=== PATIENT | female | born 2000 | race Caucasian/White ===

== ENCOUNTER 2022-11-18 12:26 | Inpatient (IN) ==
--- NOTE | 2022-11-18 13:41 | Emergency Department Note ---
Impression & Plan Suicidal thoughts ADMIT ED Provider Note HPI: The patient is a 22-year-old female who is currently a sophomore at [employer], history of anxiety and depression, ADHD, presents emergency department with a chief complaint of suicidal thoughts. Patient was seen today in the outpatient setting at the [facility] for psychological counseling, she was mentioning thoughts of self-harm including wanting to hang herself, she was brought into the emergency department after police were contacted from the clinic. On arrival here to the ED the patient is calm and cooperative, she states that she would like inpatient psychiatric care she is feeling "hopeless" and she is having thoughts of wanting to kill herself. Patient is alert and oriented on arrival and otherwise is in no acute physical distress on my initial evaluation. ROS: - Per HPI *Outpatient medications and allergy history reviewed. *Pertinent external medical records reviewed. PE: General: Alert HEENT: Normocephalic, trachea midline Eyes: Extraocular eye movement is intact, no scleral erythema Pulmonary: Clear to auscultation bilaterally, no wheezing Cardio: Regular rate and rhythm GI: Abdomen is soft to palpation : No suprapubic tenderness MSK: No evidence of trauma or malformation of the extremities, no edema Skin: No evidence of rash Neuro: Alert, no focal deficits Psychiatric: Cooperative Differential Diagnosis: Anxiety/depression, suicidal thoughts, amongst other potential pathologies. Medical Decision Making: Patient presented to the emergency department for psychiatric evaluation, presents voluntarily as she has been having increasing anxiety and depression recently. Patient states she feels "hopeless". On arrival here to the ED the patient is conversational, she is otherwise in no acute physical distress on my initial assessment. Medical clearance lab work was obtained and does not show any critical abnormalities, drug screen is positive for marijuana, patient states that she has a medical card for this. Patient is otherwise stable here in the ED. She was assessed for placement here at [facility] and was excepted. Patient was transferred to [facility] in stable condition for inpatient psychiatric care. Consultants: Case management Disposition discussion held by myself with: Patient Diagnosis: 1. Suicidal thoughts, acute 2. Anxiety and depression Disposition: Admission to psychiatry under 201 Karel Alonso DO Emergency Medicine Past Med/Surg History Social History Smoking Status: Never smoker Gender Identity: Female Home Meds Home Medications Medication Instructions Recorded Confirmed dextroamphetamine-amphetamine 20 20 mg PO DAILY 11/18/22 11/18/22 mg tablet sertraline 50 mg tablet 75 mg PO DAILY 11/18/22 11/18/22 Results & Data (ED) Vital Signs Vital Signs - 24 hr 11/18/22 12:27 Temperature 36.9 C Temperature Source Oral Pulse Rate 100 H Respiratory Rate 14 Respiratory Depth Normal Blood Pressure 130/72 Blood Pressure Mean 91 Pulse Oximetry 99 Oxygen Delivery Method Room Air Sepsis Recent Fever Within 48 Hours No Sepsis New/Unexplained Change in Mental Status No Sepsis Action Taken by Nursing No Action Required Laboratory Data 11/18/22 13:20 11/18/22 13:20 Lab Results 11/18/22 11/18/22 11/18/22 Range/Units 12:32 12:32 12:32 WBC (4.8-10.8) K/ul RBC (4.20-5.40) M/uL Hgb (12.0-16.0) g/dl Hct (37.0-47.0) % MCV (80.0-100.0) fL MCH (25.0-34.0) pg MCHC (32.0-36.0) g/dL RDW Std Deviation (36.4-46.3) fL RDW Coeff of Al (11.5-14.5) % Plt Count (130-400) K/uL MPV (9.4-12.4) fL Immature Gran % (Auto) % Neut % (Auto) % Lymph % (Auto) % Thomas % (Auto) % Eos % (Auto) % Baso % (Auto) % Neut # (Auto) (1.40-6.50) K/uL Lymph # (Auto) (1.2-3.4) K/uL Thomas # (Auto) (0.11-0.59) K/uL Eos # (Auto) (0-0.50) K/uL Baso # (Auto) (0-0.2) K/uL Immature Gran # (Auto) (0.01-0.20) K/uL Sodium (136-145) mmol/L Potassium (3.5-5.1) mmol/L Chloride (98-107) mmol/L Carbon Dioxide (21-32) mmol/L Anion Gap (3-11) BUN (6-23) mg/dl Creatinine (0.6-1.2) mg/dl Est Cr Clr Drug Dosing ml/min Est GFR ( Amer) ml/min Est GFR (Non-Af Amer) ml/min BUN/Creatinine Ratio (10-20) Glucose (70-99(Fasting)) mg/dl Calcium (8.5-10.1) mg/dl Total Bilirubin (0.2-1.0) mg/dl AST (13-39) U/L ALT (7-52) U/L Alkaline Phosphatase (34-104) U/L Total Protein (6.0-8.3) gm/dl Albumin (3.4-5.0) gm/dl Globulin (2.5-4.0) gm/dl Albumin/Globulin Ratio (0.9-2) TSH (0.300-4.500) uIu/ml Urine Color Dark Yellow Urine Appearance Cloudy A (Clear) Urine pH 5.5 (4.5-7.5) Ur Specific Shelby 1.037 H (1.000-1.030) Urine Protein Trace H (Negative) Urine Glucose (UA) Negative (Negative) Urine Ketones 1+ H (Negative) Urine Blood 2+ H (Negative) Urine Nitrite Negative (Negative) Urine Bilirubin 1+ H (Negative) Urine Urobilinogen Negative (Negative) Ur Leukocyte Esterase Negative (Negative) Urine WBC (Auto) 1-5 (0-5) /hpf Urine RBC (Auto) 0-4 (0-4) /hpf U Hyaline Cast (Auto) 10-30 H (0-5) /lpf U Epithel Cells (Auto) >30 H (0-5) /lpf Urine Bacteria (Auto) Negative (Negative) Urine Test Negative (Negative) Salicylates (3.0-30) mg/dl Urine Opiates Screen Neg (Neg) Ur Methadone, Qual Neg (Neg) Acetaminophen (10-30) ug/ml Urine Barbiturates Neg (Neg) Ur Phencyclidine (PCP) Neg (Neg) U Amphetamin/Meth Scrn Pos H (Neg) MDMA (Ecstasy) Screen Pos H (Neg) U Benzodiazepines Scrn Neg (Neg) Ur Cocaine Metabolite Neg (Neg) U Marijuana (THC) Screen Pos H (Neg) Ethyl Alcohol mg/dL (<10.0) mg/dl SARS-CoV-2, RNA, NAAT (NEGATIVE) 11/18/22 11/18/22 11/18/22 Range/Units 13:20 13:20 13:20 WBC 4.76 L (4.8-10.8) K/ul RBC 4.67 (4.20-5.40) M/uL Hgb 14.4 (12.0-16.0) g/dl Hct 42.2 (37.0-47.0) % MCV 90.4 (80.0-100.0) fL MCH 30.8 (25.0-34.0) pg MCHC 34.1 (32.0-36.0) g/dL RDW Std Deviation 41.3 (36.4-46.3) fL RDW Coeff of Al 12.4 (11.5-14.5) % Plt Count 279 (130-400) K/uL MPV 10.0 (9.4-12.4) fL Immature Gran % (Auto) 0.2 % Neut % (Auto) 58.3 % Lymph % (Auto) 34.2 % Thomas % (Auto) 6.1 % Eos % (Auto) 0.4 % Baso % (Auto) 0.8 % Neut # (Auto) 2.77 (1.40-6.50) K/uL Lymph # (Auto) 1.63 (1.2-3.4) K/uL Thomas # (Auto) 0.29 (0.11-0.59) K/uL Eos # (Auto) 0.02 (0-0.50) K/uL Baso # (Auto) 0.04 (0-0.2) K/uL Immature Gran # (Auto) 0.01 (0.01-0.20) K/uL Sodium 140 (136-145) mmol/L Potassium 4.0 (3.5-5.1) mmol/L Chloride 107 (98-107) mmol/L Carbon Dioxide 25 (21-32) mmol/L Anion Gap 8 (3-11) BUN 12 (6-23) mg/dl Creatinine 0.86 (0.6-1.2) mg/dl Est Cr Clr Drug Dosing 90.1 ml/min Est GFR ( Amer) 112.7 ml/min Est GFR (Non-Af Amer) 97.3 ml/min BUN/Creatinine Ratio 14.0 (10-20) Glucose 87 (70-99(Fasting)) mg/dl Calcium 9.2 (8.5-10.1) mg/dl Total Bilirubin 1.1 H (0.2-1.0) mg/dl AST 17 (13-39) U/L ALT 16 (7-52) U/L Alkaline Phosphatase 53 (34-104) U/L Total Protein 7.4 (6.0-8.3) gm/dl Albumin 4.7 (3.4-5.0) gm/dl Globulin 2.7 (2.5-4.0) gm/dl Albumin/Globulin Ratio 1.7 (0.9-2) TSH 0.837 (0.300-4.500) uIu/ml Urine Color Urine Appearance (Clear) Urine pH (4.5-7.5) Ur Specific Shelby (1.000-1.030) Urine Protein (Negative) Urine Glucose (UA) (Negative) Urine Ketones (Negative) Urine Blood (Negative) Urine Nitrite (Negative) Urine Bilirubin (Negative) Urine Urobilinogen (Negative) Ur Leukocyte Esterase (Negative) Urine WBC (Auto) (0-5) /hpf Urine RBC (Auto) (0-4) /hpf U Hyaline Cast (Auto) (0-5) /lpf U Epithel Cells (Auto) (0-5) /lpf Urine Bacteria (Auto) (Negative) Urine Test (Negative) Salicylates (3.0-30) mg/dl Urine Opiates Screen (Neg) Ur Methadone, Qual (Neg) Acetaminophen (10-30) ug/ml Urine Barbiturates (Neg) Ur Phencyclidine (PCP) (Neg) U Amphetamin/Meth Scrn (Neg) MDMA (Ecstasy) Screen (Neg) U Benzodiazepines Scrn (Neg) Ur Cocaine Metabolite (Neg) U Marijuana (THC) Screen (Neg) Ethyl Alcohol mg/dL (<10.0) mg/dl SARS-CoV-2, RNA, NAAT (NEGATIVE) 11/18/22 11/18/22 11/18/22 Range/Units 13:20 13:20 13:32 WBC (4.8-10.8) K/ul RBC (4.20-5.40) M/uL Hgb (12.0-16.0) g/dl Hct (37.0-47.0) % MCV (80.0-100.0) fL MCH (25.0-34.0) pg MCHC (32.0-36.0) g/dL RDW Std Deviation (36.4-46.3) fL RDW Coeff of Al (11.5-14.5) % Plt Count (130-400) K/uL MPV (9.4-12.4) fL Immature Gran % (Auto) % Neut % (Auto) % Lymph % (Auto) % Thomas % (Auto) % Eos % (Auto) % Baso % (Auto) % Neut # (Auto) (1.40-6.50) K/uL Lymph # (Auto) (1.2-3.4) K/uL Thomas # (Auto) (0.11-0.59) K/uL Eos # (Auto) (0-0.50) K/uL Baso # (Auto) (0-0.2) K/uL Immature Gran # (Auto) (0.01-0.20) K/uL Sodium (136-145) mmol/L Potassium (3.5-5.1) mmol/L Chloride (98-107) mmol/L Carbon Dioxide (21-32) mmol/L Anion Gap (3-11) BUN (6-23) mg/dl Creatinine (0.6-1.2) mg/dl Est Cr Clr Drug Dosing ml/min Est GFR ( Amer) ml/min Est GFR (Non-Af Amer) ml/min BUN/Creatinine Ratio (10-20) Glucose (70-99(Fasting)) mg/dl Calcium (8.5-10.1) mg/dl Total Bilirubin (0.2-1.0) mg/dl AST (13-39) U/L ALT (7-52) U/L Alkaline Phosphatase (34-104) U/L Total Protein (6.0-8.3) gm/dl Albumin (3.4-5.0) gm/dl Globulin (2.5-4.0) gm/dl Albumin/Globulin Ratio (0.9-2) TSH (0.300-4.500) uIu/ml Urine Color Urine Appearance (Clear) Urine pH (4.5-7.5) Ur Specific Shelby (1.000-1.030) Urine Protein (Negative) Urine Glucose (UA) (Negative) Urine Ketones (Negative) Urine Blood (Negative) Urine Nitrite (Negative) Urine Bilirubin (Negative) Urine Urobilinogen (Negative) Ur Leukocyte Esterase (Negative) Urine WBC (Auto) (0-5) /hpf Urine RBC (Auto) (0-4) /hpf U Hyaline Cast (Auto) (0-5) /lpf U Epithel Cells (Auto) (0-5) /lpf Urine Bacteria (Auto) (Negative) Urine Test (Negative) Salicylates < 3.0 L (3.0-30) mg/dl Urine Opiates Screen (Neg) Ur Methadone, Qual (Neg) Acetaminophen < 3 L (10-30) ug/ml Urine Barbiturates (Neg) Ur Phencyclidine (PCP) (Neg) U Amphetamin/Meth Scrn (Neg) MDMA (Ecstasy) Screen (Neg) U Benzodiazepines Scrn (Neg) Ur Cocaine Metabolite (Neg) U Marijuana (THC) Screen (Neg) Ethyl Alcohol mg/dL < 10.0 (<10.0) mg/dl SARS-CoV-2, RNA, NAAT NEGATIVE (NEGATIVE) Discharge Plan Visit Data Chief Complaint: Mental Health Evaluation Stated Complaint: MENTAL HEALTH EVAL ED Provider: Karel Alonso Discharge Problem: Suicidal thoughts Patient Disposition: Admitted As Inpatient Discharge Instructions Interventions: ED Discharge Assessment Last Done: 11/18/22 15:55
[2022-11-18 13:43] LABS: Appearance Urine Cloudy (Clear); Bacteria Urine Automated Negative (Negative); Blood Urine 2+ (Negative); Color Urine Dark Yellow; Epithelial Cell Urine Auto >30 /lpf (0-5); Glucose Urine UA Negative (Negative); Ketones Urine 1+ (Negative); Leukocyte Esterase Urine Negative (Negative); Nitrite Urine Negative (Negative); Protein Urine Trace (Negative); RBC Urine Automated 0-4 /hpf (0-4); Specific Gravity Urine 1.037 (1.000-1.030); Urobilinogen Urine Negative (Negative); pH Urine 5.5 (4.5-7.5)
[2022-11-18 13:45] LABS: Bilirubin Urine 1+ (Negative)
[2022-11-18 14:05] LABS: Albumin Globulin Ratio 1.7 (0.9-2); Albumin Level 4.7 gm/dl (3.4-5.0); Basophils # (auto) 0.04 K/uL (0-0.2); Basophils % (auto) 0.8 %; Bilirubin,Total 1.1 mg/dl (0.2-1.0); Calcium 9.2 mg/dl (8.5-10.1); Creatinine Clr Calc Pharmacy 90.1 ml/min; Eosinophils # (auto) 0.02 K/uL (0-0.50); Eosinophils % (auto) 0.4 %; Est GFR (African American) 112.7 ml/min; Est GFR (Non-African American) 97.3 ml/min; Globulin 2.7 gm/dl (2.5-4.0); Hematocrit (blood only) 42.2 % (37.0-47.0); Hemoglobin 14.4 g/dl (12.0-16.0); Immature Granulocytes # (auto) 0.01 K/uL (0.01-0.20); Immature Granulocytes % (auto) 0.2 %; Lymphocytes # (auto) 1.63 K/uL (1.2-3.4); Lymphocytes % (auto) 34.2 %; Mean Corpuscular Hemoglobin 30.8 pg (25.0-34.0); Mean Corpuscular Hgb Conc 34.1 g/dL (32.0-36.0); Mean Corpuscular Volume 90.4 fL (80.0-100.0); Monocytes # (auto) 0.29 K/uL (0.11-0.59); Monocytes % (auto) 6.1 %; Neutrophils # (auto) 2.77 K/uL (1.40-6.50); Neutrophils % (auto) 58.3 %; Platelet Count 279 K/uL (130-400); RDW Coefficient of Variation 12.4 % (11.5-14.5); RDW Standard Deviation 41.3 fL (36.4-46.3); Red Blood Count 4.67 M/uL (4.20-5.40); Total Protein 7.4 gm/dl (6.0-8.3); White Blood Count 4.76 K/ul (4.8-10.8)
[2022-11-18 14:13] LABS: Acetaminophen < 3 ug/ml (10-30); Salicylate < 3.0 mg/dl (3.0-30)
[2022-11-18 14:15] LABS: Amphetamines+Metham, Urine Pos (Neg); Barbiturates, Urine Neg (Neg); Benzodiazepine, Urine Neg (Neg); Cocaine, Urine Neg (Neg); MDMA (Ecstacy), Urine Pos (Neg); Methadone, Urine Neg (Neg); Opiate, Urine Neg (Neg); Phencyclidine, Urine Neg (Neg)
[2022-11-18 15:34] LABS: Pregnancy Test, Urine Negative (Negative)
[2022-11-18] MEDS ORDERED: hydrOXYzine HCl 25 MG TAB PO PRN (15:45)
[2022-11-18] MEDS ORDERED: ACETAMINOPHEN 325 MG TAB PO PRN (15:45)
[2022-11-18] MEDS ORDERED: BISMUTH SUBSALICYLATE LIQD 236 ML PO PRN (15:45)
[2022-11-18] MEDS ORDERED: SODIUM CHLORIDE 0.65% NA SOLN 45 ML (OCEAN) PRN (15:45)
[2022-11-18] MEDS ORDERED: MAGNESIUM HYDROXIDE SUSP 30 ML UDC PO PRN (15:45)
[2022-11-18] MEDS ORDERED: ALUMINUM/MAGNESIUM SUSP 30 ML UDC PO PRN (15:45)
[2022-11-18] MEDS: hydrOXYzine HCl 25 MG TAB PO PRN (23:52)
[2022-11-19] MEDS: SERTRALINE HCL 100 MG TABLET PO SCH (13:38)
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
[2022-11-20] MEDS: SERTRALINE HCL 100 MG TABLET PO SCH (09:06)
[2022-11-20] MEDS: AMPHETAMINE ASP/SULF/DEXTRAMPH 20 MG TAB PO SCH (09:08)
[2022-11-20] MEDS ORDERED: traZODone HCL 50 MG TAB PO PRN (12:05)
--- NOTE | 2022-11-20 12:05 | Psychiatric Progress Note ---
Date of Service November 20, 2022 Impression / Recommendations Impression 22 y/o woman and [employer] student with severe depression and anxiety who appears rejection-sensitive and has a family history of bipolar disorder and borderline personality disorder (mother). Diagnostically consistent with MDD with anxious distress, PTSD and ADHD by history. She is currently deemed in need of inpatient treatment for stabilization, safety, establishment of further coping skills and medication adjustment. 11/20/2022: SI lessening but still with depression, anxiety and ongoing sleep issues with nightmares likely due to PTSD. Tolerating higher dose of sertraline so far. Discussed medication treatment options in detail. Discussed risks, benefits and alternatives. Patient would like to start and consented to prazosin for PTSD night terorrs and trazodone prn for insomnia.Reviewed side effects including but not limited to: low BP, syncope with prazosin and sedation, increased appetite with trazodone. Motivational interviewing regarding cannabis use, she'd like to reduce her use, notes she was using it to feel numb and treat her high levels of anxiety and depression. (1) Major depressive disorder, recurrent, severe without psychotic features: (2) Post traumatic stress disorder (PTSD): (3) Attention deficit hyperactivity disorder (ADHD): Plan 11/20/2022: Start prazosin 1 mg HS, trazodone 50mg HS prn. 11/19/2022: * The patient [facility]) on q15 min checks (behavioral with suicide precautions) for safety. The patient will participate in group, recreational, and milieu therapies and will be offered additional individual and family sessions as clinically appropriate. * increase sertraline from 75 mg daily to 100 mg daily * continue amphetamine-dextroamphetamine 20 mg daily Suicide Risk Level Suicide Risk Level: Moderate (q15 min suicide checks) (SI with plans prior to admission with depression, but feels safe and agrees to let nursing know if she feels unable to remain safe or needs additional support) Risk Factors Assessment Do You Have Access To A Gun?: No Interval History Identifying Information CELESTINA JUÁREZ is a 22-year-old F who currently lives in [place] in an apartment with 4 roommates, has a history of major depression and ADHD, and was admitted on 11/18/22 15:45 on a 201 voluntary commitment for suicidal thoughts. Chief Complaint "I feel more connected to my body again". Review of Systems Sleep Information Total Hours of Sleep: 7 Sleep Comments: Received Vistaril for sleep and Maalox for upset stomach Meal Information Percent Meal Consumed - Breakfast: 100 Percent Meal Consumed - Lunch: 100 Percent Meal Consumed - Dinner: 100 Subjective Subjective Patient was seen & assessed and interval progress reviewed with treatment team nursing and social work. Oh reports ongoing sleep issues but today feels a bit better and thinks the medication is helping her feel more connected to her body again and less like "I'm in my head not connected". She is not noticing any side effects from the higher dose of sertraline. Denies SI today which she thinks is due to being in a supportive environment and feeling cared for while in the hospital. Discussed that she's been experiencing chronic intermittent SI and self-harm urges since childhood which she attributes to "never having a sense of belonging". She discussed her prior use of cannabis to treat her sleep issues and mostly to help prevent nightmares. Reviewed night terrors that can be seen with PTSD which seem consistent with her symptoms. Physical Exam Psychiatric Orientation: alert, oriented x 3 and cooperative Apperance: appropriately dressed and appropriately groomed Eye Contact: good eye contact Motor Behavior: steady gait and station and no abnormal motor movements Speech: normal rate/rhythm/volume of speech Affect: + depressed affect and + anxious affect Mood: + depressed mood and + anxious mood Thought Process: goal directed thought process, linear/logical thought process and clear/coherent thought process Thought Content: + cognitive distortions and reality based without delusions Suicidal Thoughts: denies suicidal thoughts (feels safe in the hospital, unsure for outside the hospital), denies suicidal plan and denies suicidal intent Homicidal Thoughts: denies homicidal thoughts Hallucinations: no auditory hallucinations and no visual hallucinations Cognition: recent memory grossly intact, remote memory grossly intact, attention grossly intact and language grossly intact Estimated Intelligence: average estimated intelligence Insight: + fair insight Judgment: + fair judgement Vital Signs (Past 24 Hours) Last Vital Signs Temp 37.0 C 11/20/22 06:00 Pulse 79 11/20/22 06:00 Resp 16 11/20/22 06:00 BP 97/63 L 11/20/22 06:00 Pulse Ox 98 11/20/22 06:00 O2 Del Method Room Air 11/20/22 06:00 Results & Data ([facility]) Current Inpatient Medications Current Inpatient Medications: Current Inpatient Medications Acetaminophen (Acetaminophen 325 Mg Tab) 650 mg PO Q4H PRN PRN Reason: Headache or Minor Fever Stop: 12/18/22 15:44 Al Hydrox/Mg Hydrox/Simethicone (Aluminum/Magnesium Susp 30 Ml Udc) 30 ml PO Q4H PRN PRN Reason: GI Upset Stop: 12/18/22 15:44 Last Admin: 11/18/22 23:54 Dose: 30 ml Amphetamine/Dextroamphetamine (Amphetamine Asp/Sulf/Dextramph 20 Mg Tab) 20 mg PO DAILY TENA Stop: 12/04/22 08:59 Last Admin: 11/20/22 09:08 Dose: 20 mg Bismuth Subsalicylate (Bismuth Subsalicylate Liqd 236 Ml) 15 ml PO PRN PRN PRN Reason: Loose Stool Stop: 12/18/22 15:44 Hydroxyzine HCl (Hydroxyzine Hcl 25 Mg Tab) 50 mg PO HSZ PRN PRN Reason: Insomnia Stop: 12/18/22 15:44 Last Admin: 11/18/22 23:52 Dose: 50 mg Hydroxyzine HCl (Hydroxyzine Hcl 25 Mg Tab) 25 mg PO Q4H PRN PRN Reason: Anxiety Stop: 12/18/22 15:44 Magnesium Hydroxide (Magnesium Hydroxide Susp 30 Ml Udc) 30 ml PO DAILY PRN PRN Reason: Constipation Stop: 12/18/22 15:44 Sertraline HCl (Sertraline Hcl 100 Mg Tablet) 100 mg PO DAILY TENA Stop: 12/19/22 13:14 Last Admin: 11/20/22 09:06 Dose: 100 mg Sodium Chloride (Sodium Chloride 0.65% Na Soln 45 Ml ([place])) 1 - 2 sprays NA PRN PRN PRN Reason: Nasal Dryness/Congestion Stop: 12/18/22 15:44 Mental Health & Subst Abuse Tx Psychiatrist Name of Psychiatrist: ELLIS Cardenas Psychiatrist's Psychiatric Appointment Comment: [facility], [facility] [address], [place] [address] Therapist Name of Therapist: ELLIS Stoner Therapist's Date of Therapist Appointment: 11/26/2022 Time of Therapist Appointment: 9am Therapy Appointment Comment: [facility], [facility] [address], [place] [address] Title I Math Tutor Name of Title I Math Tutor: Amrit Olivares Phone Number for Title I Math Tutor: [phone] Case Management Appointment Comment: Zoom link will be sent to [employer] email Post Discharge Appointments Primary Care Physician Name Of Family Doctor/PCP: [facility] Primary Care Time of Appointment with PCP: please follow up as needed Provider Appointment Comment: [facility], [place] Contact Information Discharge Discharge Address: [address] [place] [address], [place] [address]
[2022-11-20] MEDS ORDERED: PRAZOSIN HCL 1 MG CAP PO SCH (22:00)
[2022-11-21] MEDS: AMPHETAMINE ASP/SULF/DEXTRAMPH 20 MG TAB PO SCH (09:37)
[2022-11-21] MEDS: SERTRALINE HCL 100 MG TABLET PO SCH (09:37)
--- NOTE | 2022-11-21 15:24 | Psychiatric Progress Note ---
Date of Service November 21, 2022 Impression / Recommendations Impression 22 y/o woman and [employer] student with severe depression and anxiety who appears rejection-sensitive and has a family history of bipolar disorder and borderline personality disorder (mother). Diagnostically consistent with MDD with anxious distress, PTSD and ADHD by history. She is currently deemed in need of inpatient treatment for stabilization, safety, establishment of further coping skills and medication adjustment. 11/21/2022: Still with some depression but mood gradually improving. Processed impact of trauma on how she views relationships and worked to challenge cognitive distortions related to this (i.e. sense of being unlovable or unworthy of caring relationships) and ways to challenge cognitive distortions related to this. Some of her nausea may be due to sertraline increase but she wants to continue with this. Discontinue prazosin and trazodone due to side effects. (1) Major depressive disorder, recurrent, severe without psychotic features: (2) Post traumatic stress disorder (PTSD): (3) Attention deficit hyperactivity disorder (ADHD): Plan 11/21/2022: Discontinue prazosin and trazodone. Continue sertraline 100mg daily. Continue Adderall 20mg daily. 11/20/2022: Start prazosin 1 mg HS, trazodone 50mg HS prn. 11/19/2022: * The patient was [facility] on q15 min checks (behavioral with suicide precautions) for safety. The patient will participate in group, recreational, and milieu therapies and will be offered additional individual and family sessions as clinically appropriate. * increase sertraline from 75 mg daily to 100 mg daily * continue amphetamine-dextroamphetamine 20 mg daily Suicide Risk Level Suicide Risk Level: Moderate (q15 min suicide checks) (SI with plans prior to admission with depression, but feels safe and denies SI here and agrees to let nursing know if she feels unable to remain safe or needs additional support) Risk Factors Assessment Do You Have Access To A Gun?: No Interval History Identifying Information CELESTINA JUÁREZ is a 22-year-old F who currently lives in [place] in an apartment with 4 roommates, has a history of major depression and ADHD, and was admitted on 11/18/22 15:45 on a 201 voluntary commitment for suicidal thoughts. Chief Complaint "I felt a lot more emotional this morning, now I'm ok". Review of Systems Sleep Information Total Hours of Sleep: 7.5 Sleep Comments: Meal Information Percent Meal Consumed - Breakfast: 5 Percent Meal Consumed - Lunch: 100 Percent Meal Consumed - Dinner: 100 Nutrition Comment: Pt felt nauseated Subjective Subjective Patient was seen & assessed and interval progress reviewed with treatment team nursing and social work. Took prazosin and then trazodone later in the evening due to ongoing issues falling asleep. BP dropped low this morning after prazosin use. She did not have any lightheadedness at that time but felt kind of lightheaded later in the morning when she got up around 10am. Also felt very lethargic, likely from the trazodone. Baudette slightly nauseous after breakfast but denies any emesis. By mid-afternoon was feeling better physically. Agreed that given low BP with lightheadedness to discontinue prazosin. Also still had a bad dream last night so it didn't seem helpful. Prefers to discontinue trazodone as well as caused a lot of grogginess this morning. She's rather use Vistaril which isn't as effective for falling asleep but has fewer side effects. Denies SI currently. Still worries SI could re-occur once shes around outside stressors and when she feels "not worthy". She completed CAMS initial to further explore driving factors for her suicidality and BPD screen. BPD screen responses more consistent with complex trauma presentation. We spent about 45 minutes discussing her recent stressors and contributing factors to why she feels unlovable and sensitive to rejection or feelings of abandonment especially most recently by her friends/roommates. Discussed ways to try to be more open with them about her concerns and ways to set healthy boundaries to ensure it feels like a supportive relationship/friendship for all of them. Physical Exam Psychiatric Orientation: alert, oriented x 3 and cooperative Apperance: appropriately dressed and appropriately groomed Eye Contact: good eye contact Motor Behavior: steady gait and station and no abnormal motor movements Speech: normal rate/rhythm/volume of speech Affect: + anxious affect Mood: + depressed mood and + anxious mood Thought Process: goal directed thought process, linear/logical thought process and clear/coherent thought process Thought Content: + cognitive distortions and reality based without delusions Suicidal Thoughts: denies suicidal thoughts (feels safe in the hospital, unsure for outside the hospital), denies suicidal plan and denies suicidal intent Homicidal Thoughts: denies homicidal thoughts Hallucinations: no auditory hallucinations and no visual hallucinations Cognition: recent memory grossly intact, remote memory grossly intact, attention grossly intact and language grossly intact Estimated Intelligence: average estimated intelligence Insight: + fair insight Judgment: + fair judgement Vital Signs (Past 24 Hours) Last Vital Signs Temp 36.7 C 11/21/22 06:00 Pulse 80 11/21/22 10:31 Resp 16 11/21/22 06:00 BP 106/66 11/21/22 10:31 Pulse Ox 100 11/21/22 06:00 O2 Del Method Room Air 11/21/22 06:00 Results & Data ([facility]) Current Inpatient Medications Current Inpatient Medications: Current Inpatient Medications Acetaminophen (Acetaminophen 325 Mg Tab) 650 mg PO Q4H PRN PRN Reason: Headache or Minor Fever Stop: 12/18/22 15:44 Al Hydrox/Mg Hydrox/Simethicone (Aluminum/Magnesium Susp 30 Ml Udc) 30 ml PO Q4H PRN PRN Reason: GI Upset Stop: 12/18/22 15:44 Last Admin: 11/18/22 23:54 Dose: 30 ml Amphetamine/Dextroamphetamine (Amphetamine Asp/Sulf/Dextramph 20 Mg Tab) 20 mg PO DAILY TENA Stop: 12/04/22 08:59 Last Admin: 11/21/22 09:37 Dose: 20 mg Bismuth Subsalicylate (Bismuth Subsalicylate Liqd 236 Ml) 15 ml PO PRN PRN PRN Reason: Loose Stool Stop: 12/18/22 15:44 Hydroxyzine HCl (Hydroxyzine Hcl 25 Mg Tab) 50 mg PO HSZ PRN PRN Reason: Insomnia Stop: 12/18/22 15:44 Last Admin: 11/18/22 23:52 Dose: 50 mg Hydroxyzine HCl (Hydroxyzine Hcl 25 Mg Tab) 25 mg PO Q4H PRN PRN Reason: Anxiety Stop: 12/18/22 15:44 Magnesium Hydroxide (Magnesium Hydroxide Susp 30 Ml Udc) 30 ml PO DAILY PRN PRN Reason: Constipation Stop: 12/18/22 15:44 Prazosin HCl (Prazosin Hcl 1 Mg Cap) 1 mg PO HS TENA Stop: 12/20/22 21:59 Last Admin: 11/20/22 21:03 Dose: 1 mg Sertraline HCl (Sertraline Hcl 100 Mg Tablet) 100 mg PO DAILY TENA Stop: 12/19/22 13:14 Last Admin: 11/21/22 09:37 Dose: 100 mg Sodium Chloride (Sodium Chloride 0.65% Na Soln 45 Ml ([place])) 1 - 2 sprays NA PRN PRN PRN Reason: Nasal Dryness/Congestion Stop: 12/18/22 15:44 Trazodone HCl (Trazodone Hcl 50 Mg Tab) 50 mg PO HS PRN PRN Reason: Insomnia Stop: 12/20/22 21:59 Last Admin: 11/20/22 22:39 Dose: 50 mg Mental Health & Subst Abuse Tx Psychiatrist Name of Psychiatrist: ELLIS Cardenas Psychiatrist's Psychiatric Appointment Comment: [facility], [facility] [address], [place] [address] Therapist Name of Therapist: ELLIS Stoner Therapist's Date of Therapist Appointment: 11/26/2022 Time of Therapist Appointment: 9am Therapy Appointment Comment: [facility], [facility] [address], [place] [address] Missile Mechanic Name of Missile Mechanic: Amrit Olivares Phone Number for Missile Mechanic: [phone] Case Management Appointment Comment: Zoom link will be sent to [employer] email Post Discharge Appointments Primary Care Physician Name Of Family Doctor/PCP: [facility] Primary Care Time of Appointment with PCP: please follow up as needed Provider Appointment Comment: [facility] Contact Information Discharge Discharge Address: [address] [place] [address], [place] [address]
[2022-11-22] MEDS: hydrOXYzine HCl 25 MG TAB PO PRN (01:22)
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
[2022-11-22] MEDS: SERTRALINE HCL 100 MG TABLET PO SCH (08:37)
[2022-11-22] MEDS: AMPHETAMINE ASP/SULF/DEXTRAMPH 20 MG TAB PO SCH (08:37)
[2022-11-24 16:32] LABS: Amphetamine Urine, Confirm >15000 ng/mL (<250); MDA negative; MDEA negative; MDMA (Ecstasy) Urine, Confirm negative; Marijuana Quant, GCMS Urine 2354 ng/mL (<5); Methamphetamine, Ur Confirm NEGATIVE ng/mL (<250)
== END 2022-11-22 11:14 | disposition home or self-care (01) | DRG 885 ==
LOC: ED 12:26 → 3S 15:45 → SUATTDRO 15:45 → 3S 15:55
DX: F41.9 Anxiety disorder, unspecified; Z81.8 Family history of other mental and behavioral disorders; F33.2 Major depressive disorder, recurrent severe without psychotic features; Z79.899 Other long term (current) drug therapy; R45.851 Suicidal ideations; F43.10 Post-traumatic stress disorder, unspecified; Z63.8 Other specified problems related to primary support group; F90.9 Attention-deficit hyperactivity disorder, unspecified type